=== PATIENT | male | born 1995 | race Caucasian/White ===

== ENCOUNTER 2017-03-31 22:31 | Emergency (ER) | payer OTHER ==
[~2017-03-31] VITALS: Ht 182.9 cm; Wt 84.1 kg
[2017-03-31 22:31] VITALS: BP 128/84; PULSE 84; RESP 14; O2SAT 98
--- NOTE | 2017-03-31 23:34 | ED.REPORT ---
HPI-Eye Problem Date of Service Mar 31, 2017 ED Provider: Kenan Mcfarlane MD Pt is a 21 year old male who presents to the ED via police from the nursing home with a right eye injury onset this evening. He states he was playing handball when he was hit in the right eye. He denies any eye pain, vision loss, blurred vision, neck pain, or headache. Pt states "he doesn't know why he is here". He was sent in for fear of infection. Nursing Notes Stated Complaint: RT EYE INJURY Chief Complaint: Eye Nursing Notes Reviewed: Yes Allergies: Coded Allergies: No Known Allergies (Unverified , 03/31/17) General Time Seen by MD: 23:19 Chief Complaint Right eye affected Hx Obtained From: Patient, Police Arrived By: Police Sudden in Onset?: Yes Onset Occurred: 1 - 4 hours ago Caused by: Trauma Location: : Eye right Severity: Current: No pain currently Severity: Maximum: No pain Pertinent Negative: Pt denies other symptoms Recent Healthcare: No recent doctor visit, No recent hospitalization Similar Sx Previous: No Past Medical History Past Medical History Denies Past Surgical History Denies Social History In nursing home Ambulatory Status Independent Review of Systems R eye injury Eyes: Denies: Blurred right, Eye pain right, Visual loss left Neurologic: Denies: Headache Complete sys rev & neg: except as marked. Musculoskeletal: Denies: Neck pain Physical Exam Initial Vital Signs Vital Signs (First) Date Time Temp Pulse Resp B/P Pulse Ox O2 Delivery O2 Flow Rate FiO2 03/31/17 22:31 36.4 84 14 128/84 98 Room Air Initial VS: Reviewed Neck: Supple, Full range of motion Extremities: Vascular intact, Neuro intact, No swelling, No tenderness Skin: Warm, Dry, No cyanosis Neurologic: Alert, Oriented, Nonfocal Psychiatric: Mood/affect normal, Behavior normal, Normal thought content Head / Eyes: Atraumatic, Normocephalic, PERRL, EOMI, Conjunctiva NL, No corneal abrasion No orbital rim entry No bruising Re-Eval/Medical Decision Source of Hx: Old records Counseled Regarding: Diagnosis, Lab results, Need for follow-up, When/why to return to ED Discharge & Departure Primary Impression: Right eye injury Encounter type: initial encounter Qualified Code: S05.91XA - Unspecified injury of right eye and orbit, initial encounter Disposition: Home Additional Instructions: No evidence of significant eye injury at this time. Fit for nursing home. Referrals: NOPCP (PCP) Scribe Attestation Portions of this note were transcribed by Kathy Kruse. I, Dr. Mcfarlane, personally performed the history, physical exam and medical decision-making; I reviewed and confirmed the accuracy of the information in the transcribed note. Kenan Mcfarlane MD Mar 31, 2017 23:34 Kathy Kruse Mar 31, 2017 23:36
[2017-03-31 23:47] VITALS: BP 127/81; PULSE 71; O2SAT 98
== END 2017-03-31 23:48 | disposition home or self-care (01) ==
LOC: SED 22:31
DX: S05.91XA Unspecified injury of right eye and orbit, initial encounter (principal); W22.8XXA Striking against or struck by other objects, initial encounter; Y93.73 Activity, racquet and hand sports; Y92.9 Unspecified place or not applicable; Y99.8 Other external cause status